=== PATIENT | male | born 1985 | race Caucasian/White ===

== ENCOUNTER 2022-02-28 00:30 | Emergency (ER) | payer BC, OTHER ==
[2022-02-28] MEDS ORDERED: Ondansetron 4 MG/2 ML SDV IVPUSH ONE (01:05)
[2022-02-28] MEDS ORDERED: Sodium Chloride 0.9% 10 ML Syringe FLUSH PRN (01:05)
[2022-02-28] MEDS ORDERED: HYDROmorphone 0.5 MG/0.5 ML Syringe IVPUSH ONE (01:06)
[2022-02-28] MEDS ORDERED: Ketorolac 30 MG/ML SDV IVPUSH ONE (01:06)
[2022-02-28] MEDS ORDERED: Sodium Chloride 0.9% 1,000 ML IV SCH (01:15)
[2022-02-28 01:55] LABS: ESTIMATED GFR > 60 mL/min (>60)
== END 2022-02-28 02:46 | disposition home or self-care (01) ==
LOC: JD.ED 00:30
DX: K57.32 Diverticulitis of large intestine without perforation or abscess without bleeding (principal); F17.210 Nicotine dependence, cigarettes, uncomplicated; I10 Essential (primary) hypertension
CPT/HCPCS: 36415; 74176; 80053; 83690; 85025; 96361; 96374; 96375; 99284; J1170; J1885; J2405; J3490; J7030

== ENCOUNTER 2023-12-19 13:40 | Emergency (ER) | payer MEDICAID, OTHER ==
[2023-12-19] MEDS: Sodium Chloride 0.9% 10 ML Syringe FLUSH PRN (16:17)
[2023-12-19 16:18] LABS: BASOPHILS PERCENT AUTO 0.5 % (0.0-1.0); EOSINOPHILS ABSOLUTE AUTO 0.1 K/mm3 (0.0-0.4); HEMATOCRIT 45.4 % (42.0-52.0); HEMOGLOBIN 15.9 gm/dl (14.0-18.0); IMMATURE GRAN ABSOLUTE AUTO 0.02 K/mm3 (0.00-0.05); IMMATURE GRAN PERCENT AUTO 0.3 % (0.0-0.4); LYMPHOCYTES ABSOLUTE AUTO 2.3 K/mm3 (1.0-4.8); LYMPHOCYTES PERCENT AUTO 29.4 % (24.0-44.0); MEAN CORPUSCULAR HEMOGLOBIN 30.7 pg (28.0-32.0); MEAN CORPUSCULAR VOLUME 87.6 fl (83.0-99.0); MEAN PLATELET VOLUME 8.4 fl (9.4-12.4); MONOCYTES ABSOLUTE AUTO 0.5 K/mm3 (0.0-0.8); MONOCYTES PERCENT AUTO 6.2 % (0.0-8.0); NEUTROPHILS ABSOLUTE AUTO 4.8 K/mm3 (1.8-7.7); NEUTROPHILS PERCENT AUTO 62.6 % (41.0-71.0); PLATELET COUNT,PLT 342 K/mm3 (150-400); RED BLOOD CELL COUNT 5.18 M/mm3 (4.52-5.90)
[2023-12-19 17:24] LABS: ALBUMIN 4.2 g/dl (3.4-5.0); ANION GAP 13.6 (5-15); BILIRUBIN TOTAL 0.5 mg/dL (0.2-1.0); BUN/CREATININE RATIO 13.3 (14-18); C-REACTIVE PROTEIN 3.12 mg/dL (<0.30); CALCIUM 9.5 mg/dL (8.5-10.1); CREATININE 0.9 mg/dL (0.7-1.3); EST CRCL DRUG DOSING (CG) 110.2 mL/min; PROTEIN TOTAL,TP 8.5 g/dl (6.4-8.2)
[2023-12-19 17:25] LABS: POTASSIUM,K 3.6 mEq/L (3.5-5.1)
[2023-12-19] MEDS: Diatrizoate Meglumine/Diatrizoate Sodium 37% 120 ML Bottle PO ONE ×2 (17:54→17:55)
[2023-12-19] MEDS: Iopamidol 612 MG/ML 100 ML Bottle IVPUSH ONE ×2 (17:55)
== END 2023-12-19 19:48 | disposition home or self-care (01) ==
LOC: JD.ED 13:40
DX: R10.31 Right lower quadrant pain (principal); I10 Essential (primary) hypertension; F17.210 Nicotine dependence, cigarettes, uncomplicated
CPT/HCPCS: 36415; 74018; 74177; 80053; 83605; 85025; 86140; 99284; J3490; Q9963; Q9967